=== PATIENT | female | born 1955 | race African-American/Black ===

== ENCOUNTER 2019-01-02 19:40 | Emergency (ER) | payer MEDICAID, OTHER ==
[~2019-01-02] VITALS: Ht 172.7 cm; Wt 73.0 kg
[~2019-01-02 19:40] MED LIST: ACET-787 PO; AMLO5TAB PO; OXYC10TE14 PO; ZOLP10TA1 PO
[2019-01-02 19:46] VITALS: BP 189/94
--- NOTE | 2019-01-02 20:00 | NUR ---
PT AMBULATED TO THE RESTROOM, GAVE SPECIMEN AND OUT TO LOBBY, VSS
--- NOTE | 2019-01-02 20:31 | NUR ---
AMBULATED TO BED #2
--- NOTE | 2019-01-02 20:40 | NUR ---
PT BIB SELF C/O RECTAL BLEEDING. PT STATES SHE WAS HAVING A BM X1 HOUR AGO AND THE TOILET BOWL "WAS FILLED W/ BLOOD", BLOOD WHEN WIPED. NO ACTING BLEEDING AT THIS TIME. PT STATES 5/10 LOWER ABD PAIN, DISCRIBED CONSTANT BURNING. SKIN WARM, DRY AND INTACT. PT ACTING APPRORPRIALTY, SPEAKING IN CLEAR AND COMPLETE SENTENCES. PMH: HTN, POLYP REMOVED IN 2008 Addendum: 01/02/19 at 2224 by [email or web address] PT BIB SELF C/O RECTAL BLEEDING. PT STATES SHE WAS HAVING A BM X1 HOUR AGO AND THE TOILET BOWL "WAS FILLED W/ BLOOD", BLOOD WHEN WIPED, PT STATES BLOOD WAS BRIGHT/DARK RED. NO ACTING BLEEDING AT THIS TIME. PT STATES 5/10 LOWER ABD PAIN, DISCRIBED CONSTANT BURNING. SKIN WARM, DRY AND INTACT. PT ACTING APPRORPRIALTY, SPEAKING IN CLEAR AND COMPLETE SENTENCES. PMH: HTN, POLYP REMOVED IN 2008
[2019-01-02 20:47] LABS: BASOPHILS % (AUTO) 1.1 % (0.0-2.0); EOSINOPHILS % (AUTO) 0.6 % (0.0-4.0); HEMATOCRIT 38.8 % (36-48); HEMOGLOBIN 13.1 g/dL (12.0-16.0); LYMPHOCYTES # (AUTO) 2.9 K/uL (2.5-16.5); LYMPHOCYTES % (AUTO) 67.1 % (20.5-51.1); MEAN CORPUSCULAR HEMOGLOBIN 34 pg (27-31); MEAN CORPUSCULAR HGB CONC 34 g/dL (33-37); MEAN CORPUSCULAR VOLUME 101.5 fL (80-94); MONOCYTES # (AUTO) 0.3 K/uL (0.8-1.0); MONOCYTES % (AUTO) 6.4 % (1.7-9.3); NEUTROPHILS # (AUTO) 1.1 K/uL (1.8-7.7); NEUTROPHILS % (AUTO) 24.8 % (42.2-75.2); PLATELET COUNT (AUTO) 186 K/uL (140-450); RED BLOOD CELL COUNT(AUTO) 3.82 MIL/uL (4.20-5.40); WHITE BLOOD COUNT (AUTO) 4.3 K/uL (4.8-10.8)
[2019-01-02 21:04] LABS: ALBUMIN 3.9 g/dL (3.4-5.0); CARBON DIOXIDE 30.7 mmol/L (21-32); POTASSIUM 3.7 mmol/L (3.5-5.1); TOTAL BILIRUBIN 0.5 mg/dL (0.0-1.0)
--- NOTE | 2019-01-02 22:20 | NUR ---
DR. RIGGINS BEDSIDE EVALUATING PT
--- NOTE | 2019-01-02 22:25 | NUR ---
Female racket stringer at bedside by RN for rectal exam by Dr. Reyna at this time.
[2019-01-02 22:43] VITALS: BP 189/94
--- NOTE | 2019-01-02 22:43 | NUR ---
Patient discharged with v/s stable. Written and verbal after care instructions given and explained. Patient verbalized understanding. Ambulatory with steady gait. All questions addressed prior to discharge. Advised to follow up with PMD.
== END 2019-01-02 22:43 | disposition home or self-care (01) ==
LOC: MED 19:40
DX: K64.9 Unspecified hemorrhoids (principal); K62.5 Hemorrhage of anus and rectum; I10 Essential (primary) hypertension; Z90.49 Acquired absence of other specified parts of digestive tract; Z88.0 Allergy status to penicillin; Z79.899 Other long term (current) drug therapy
CPT/HCPCS: 36415; 80053; 81002; 81025; 83690; 85025; 99284

== ENCOUNTER 2019-02-18 08:15 | Emergency (ER) | payer SELFPAY ==
[~2019-02-18] VITALS: Ht 167.6 cm; Wt 73.0 kg
[2019-02-18 08:24] VITALS: BP 166/92
--- NOTE | 2019-02-18 08:28 | NUR ---
PT AMB TO BED 8 WITH STEADY GAIT Addendum: 02/18/19 at 0832 by [email or web address] TO BED 5
--- NOTE | 2019-02-18 08:32 | NUR ---
DR. CADET AT BEDSIDE EVALUATING PATIENT.
[2019-02-18] MEDS ORDERED: hydrOXYzine HCL 25 MG TAB PO ONE (08:35)
[2019-02-18] MEDS ORDERED: DEXAMETHASONE 10 MG/ML VIAL IM ONE (08:35)
--- NOTE | 2019-02-18 08:45 | NUR ---
PT C/O BUG BITE X 2 DAYS AGO. PATIENT STATES THE NEXT DAY IT TURNED PURPLE. STATES SHE PUT RUBBING ALCOHOL ON IT. PAIN DESCRIBED BURNING 03/21. DENIES N/V/D; SKIN IS PINK/WARM/DRY; AAOX4 WITH EVEN AND STEADY GAIT; PT DENIES ANY FEVER, CP, SOB, OR COUGH AT THIS TIME; VSS; PATIENT POSITIONED FOR COMFORT; HOB ELEVATED; BEDRAILS UP X2; BED DOWN. ER MD MADE AWARE OF PT STATUS.
--- NOTE | 2019-02-18 08:46 | NUR ---
BUG BITE TO Nestor ANKLE
--- NOTE | 2019-02-18 08:48 | NUR ---
Josemanuel goldberg in ED - 02/18/19 at 0848 by [email or web address] PT REFUSED DECADRON IM INJECTION AT THIS TIME.
--- NOTE | 2019-02-18 08:49 | NUR ---
MEDS ADMINISTERED BY CESILIA CROCKETT. PT REFUSED DECADRON IM INJECTION AT THIS TIME.
[2019-02-18 09:17] VITALS: BP 162/90
--- NOTE | 2019-02-18 09:17 | NUR ---
Patient discharged with v/s stable. Written and verbal after care instructions given and explained. Patient alert, oriented and verbalized understanding of instructions. Ambulatory with steady gait. All questions addressed prior to discharge. ID band removed. Patient advised to follow up with PMD. Rx of TRIAMCINOLONE ACETONIDE TOPICAL CREAM AND ATARAX given. Patient educated on indication of medication including possible reaction and side effects. Opportunity to ask questions provided and answered. PT INSTRUCTED TO RETURN TO ED IF SYMPTOMS WORSEN.
== END 2019-02-18 09:17 | disposition home or self-care (01) ==
LOC: MED 08:15
DX: S90.562A Insect bite (nonvenomous), left ankle, initial encounter (principal); I10 Essential (primary) hypertension; G89.29 Other chronic pain; Z79.899 Other long term (current) drug therapy; W57.XXXA Bitten or stung by nonvenomous insect and other nonvenomous arthropods, initial encounter; Y93.89 Activity, other specified; Y92.89 Other specified places as the place of occurrence of the external cause; Y99.8 Other external cause status
CPT/HCPCS: 99283; J1100

== ENCOUNTER 2019-08-20 06:10 | Emergency (ER) | payer MEDICAID ==
[~2019-08-20] VITALS: Ht 172.7 cm; Wt 72.6 kg
[~2019-08-20 06:10] MED LIST changes: -ACET-787 PO; -ZOLP10TA1 PO
[2019-08-20 06:12] VITALS: BP 176/88
--- NOTE | 2019-08-20 06:18 | NUR ---
PT AMBUALTED TO BED #12
--- NOTE | 2019-08-20 06:28 | NUR ---
PT STATES SHE HAS NORMAL BM PATTERN.
--- NOTE | 2019-08-20 06:28 | NUR ---
64 Y/O FEMALE C/O URINARY BURNING X 1 WEEK. RAES PAIN 9/10 AND DESCRIBES IT SHARP BURNING CONSTANT PAIN AND IS LOCATED AT SUPRAPUBIC AREA AND RADIATES TO BILAT LOWER BACK. PT TOOK TYLENOL AND PERCOCET AT 0500 TODAY WITH NO RELIEF. PT STATES SHE HAS BURNING SENSATION WHEN PEEING BUT NO BLOOD IN URINE. NO FEVER,N,V,D. ABD IS SOFT, ROUND, TENDERNESS AROUND SUPRPUBIC AREA, ACTIVE BS. VSS. A & O X4. STEADY GAIT. UMBILICAL HERNIA PROTRUDING FROM ABD NOTED. NO SIGNS OF DISTRESS OR BLEEDING. AERLLGIES: PENCILLIN PMH: HTN, UMBILICAL HERNIA, DIVERTICULITIS, POLYP REMOVED IN COLON ( 1YR AGO).
--- NOTE | 2019-08-20 06:55 | NUR ---
TOOK URINE TO LAB.
--- NOTE | 2019-08-20 07:14 | NUR ---
Josemanuel goldberg in [facility] - 08/20/19 at 0715 by KATY Pt report given to BON ROSS. Transfer of care at this time.
--- NOTE | 2019-08-20 07:14 | NUR ---
Pt report given to BON ROSS. Transfer of care at this time.
--- NOTE | 2019-08-20 07:17 | NUR ---
Pt report given to BON ROSS. Transfer of care at this time.
[2019-08-20 07:46] VITALS: BP 176/88
--- NOTE | 2019-08-20 07:46 | NUR ---
Patient discharged by Dr. Sotomayor with v/s stable. Written and verbal after care instructions given and explained. Patient verbalized understanding. Rx of Pyridium 200mg and Macrobid Capsule 100mg was given. Ambulatory with steady gait. All questions addressed prior to discharge. Advised to follow up with PMD.
[2019-08-20 07:51] LABS: APPEARANCE,URINE SL CLOUDY (CLEAR); BILIRUBIN,URINE NEGATIVE (NEGATIVE); BLOOD, URINE NEGATIVE (NEGATIVE); COLOR,URINE YELLOW (YELLOW); LEUKOCYTE ESTERASE ,URINE NEGATIVE (NEGATIVE); NITRITE, URINE NEGATIVE (NEGATIVE); PH,URINE 7.5 (5.0-9.0); UGLUCOSE NEGATIVE (NEGATIVE)
[2019-08-20 07:59] LABS: RBC,URINE NONE SEEN /HPF (0-5); WBC,URINE 0-5 /HPF (0-5)
[2019-08-20 08:00] LABS: CALCIUM OXALATE CRYSTALS,UR 0-10 /HPF (None Seen); URINE AMORPHOUS URATE 2+ /HPF (None Seen)
== END 2019-08-20 07:46 | disposition home or self-care (01) ==
LOC: MED 06:10
DX: N39.0 Urinary tract infection, site not specified (principal); I10 Essential (primary) hypertension; Z90.49 Acquired absence of other specified parts of digestive tract; Z90.710 Acquired absence of both cervix and uterus; Z98.890 Other specified postprocedural states; Z79.899 Other long term (current) drug therapy; Z79.891 Long term (current) use of opiate analgesic; Z88.0 Allergy status to penicillin
CPT/HCPCS: 81001; 99283

== ENCOUNTER 2019-09-11 19:02 | Emergency (ER) | payer MEDICAID ==
[~2019-09-11] VITALS: Ht 172.7 cm; Wt 72.1 kg
[2019-09-11 19:24] VITALS: BP 183/93
--- NOTE | 2019-09-11 19:31 | NUR ---
PT AMBULATED TO BED #4
--- NOTE | 2019-09-11 19:35 | NUR ---
PT 64 Y/O FEMALE BIB SELF FOR PAINFUL URINATION X 2 DAYS. HAD HX OF UTI X 2 WEEKS AGO BUT STOPPED TAKING ABT. 04/21 PAIN UPON URINATING RADIATING TO LEFT AND RIGHT FLANK. AFEBRILE. DENIES COUGH, SOB. DENIES N/V/D. PT ABLE TO AMBULATE TO RESTROOM WITHOUT ASSISTANCE. UA COLLECTED. PT AAO X 4. PT RESTING IN BED EYES OPEN. RESPIRATIONS AR EVEN AND UNLABORES. SKIN IS WARM AND DRY TO TOUCH. BED LOCKED AND IN LOWEST POSITION. MEDHX: HTN ALLERGIES: HTN
--- NOTE | 2019-09-11 20:20 | NUR ---
PT AMBULATED TO RESTROOM WITHOUT ASSISTANCE.
[2019-09-11 21:00] VITALS: BP 165/82
--- NOTE | 2019-09-11 21:00 | NUR ---
Patient discharged with v/s stable. Written and verbal after care instructions given and explained. Patient alert, oriented and verbalized understanding of instructions. Ambulatory with steady gait. All questions addressed prior to discharge. ID band removed. Patient advised to follow up with PMD. Rx of BACTRIM,PYRIDIUM given. Patient educated on indication of medication including possible reaction and side effects. Opportunity to ask questions provided and answered.
== END 2019-09-11 21:00 | disposition home or self-care (01) ==
LOC: MED 19:02
DX: N39.0 Urinary tract infection, site not specified (principal); I10 Essential (primary) hypertension; Z79.899 Other long term (current) drug therapy; Z88.0 Allergy status to penicillin
CPT/HCPCS: 81002; 87086; 99283

== ENCOUNTER 2020-01-06 13:22 | Emergency (ER) | payer OTHER ==
[~2020-01-06] VITALS: Ht 172.7 cm; Wt 72.6 kg
[2020-01-06 13:26] VITALS: BP 174/100
[2020-01-06] MEDS: oxyCODONE/APAP 5/325 MG 1 TAB TAB PO ONE (13:56)
[2020-01-06 14:09] VITALS: BP 174/100
== END 2020-01-06 14:11 | disposition home or self-care (01) ==
LOC: MED 13:22
DX: M54.5 Low back pain (principal); I10 Essential (primary) hypertension; Z88.0 Allergy status to penicillin; Z79.899 Other long term (current) drug therapy; Z98.890 Other specified postprocedural states
CPT/HCPCS: 99283

== ENCOUNTER 2020-01-07 14:04 | Emergency (ER) | payer OTHER ==
[~2020-01-07] VITALS: Ht 170.2 cm; Wt 70.3 kg
--- NOTE | 2020-01-07 14:05 | NUR ---
PT AMBULATED TO CHAIR A, STEADY GAIT.
[2020-01-07 14:08] VITALS: BP 167/98
--- NOTE | 2020-01-07 14:24 | NUR ---
64 Y/F PRESENTS TO ED FOR LOW BACK PAIN.PT SEEN YESTERDAY IN ED AND REPORTS WORSENING PAIN TODAY. PT REPORTS 9/10 BURNING PAIN. PT REPORTS PAIN IS CHRONIC, HAS HAD AN MRI DONE AND HAS HX OF BULGING DISKS. PT REPORTS SHE IS DUE FOR A PERCOCET REFILL ON SATURDAY. PT DENIES URINARY FREQUENCY, HEMATURIA. LOW BACK IS NONTENDER TO PALPATION. SKIN INTACT NO EDEMA OR RASHES NOTED. PMH- HTN, BULGING DISK ALLEGIES-PENICILLIN
--- NOTE | 2020-01-07 14:39 | NUR ---
ASHISH TAPIA CHAIRSIDE.
[2020-01-07 15:10] VITALS: BP 182/92
--- NOTE | 2020-01-07 15:10 | NUR ---
Patient discharged with v/s stable. Written and verbal after care instructions given and explained. Patient alert, oriented and verbalized understanding of instructions. Ambulatory with steady gait. All questions addressed prior to discharge. ID band removed. Patient advised to follow up with PMD. Rx of [place] given. Patient educated on indication of medication including possible reaction and side effects. Opportunity to ask questions provided and answered. pt's BP is 182/92mmHg, PA, villa notified.
== END 2020-01-07 15:10 | disposition home or self-care (01) ==
LOC: MED 14:04
DX: G89.29 Other chronic pain (principal); R03.0 Elevated blood-pressure reading, without diagnosis of hypertension; Z88.0 Allergy status to penicillin; Z79.899 Other long term (current) drug therapy
CPT/HCPCS: 81002; 99283

== ENCOUNTER 2021-05-04 08:47 | Emergency (ER) | payer OTHER ==
[~2021-05-04] VITALS: Ht 172.7 cm; Wt 71.2 kg
[2021-05-04 08:57] VITALS: BP 141/76
--- NOTE | 2021-05-04 09:12 | NUR ---
PT AMBULATED TO ER BED 11.
--- NOTE | 2021-05-04 09:15 | NUR ---
DR. BEAVERS AT PT BEDSIDE FOR FURTHER EVALUATION.
--- NOTE | 2021-05-04 09:19 | NUR ---
PATIENT PRESENTS TO ED WITH UTI SYMPTOMS X1 WEEK . PT STATES SHE IS EXPEREINCING URINARY BURNING/HESITANCY/FREQUENCY . DENIES N/V/D; SKIN IS PINK/WARM/DRY; AAOX4 WITH EVEN AND STEADY GAIT; LUNGS CLEAR BL; HR EVEN AND REGULAR; PT DENIES ANY FEVER, CP, SOB, OR COUGH AT THIS TIME; PATIENT STATES PAIN OF 4/10 AT THIS TIME; VSS; PATIENT POSITIONED FOR COMFORT; HOB ELEVATED; BEDRAILS UP X2; BED DOWN. ER MD MADE AWARE OF PT STATUS.
[2021-05-04] MEDS ORDERED: SULF-59 PO (09:24)
[2021-05-04] MEDS ORDERED: PYR100 PO (09:24)
--- NOTE | 2021-05-04 10:36 | NUR ---
Patient discharged with v/s stable. Written and verbal after care instructions given and explained. Patient alert, oriented and verbalized understanding of instructions. Ambulatory with steady gait. All questions addressed prior to discharge. ID band removed. Patient advised to follow up with PMD. Rx of Bactrim and Pyridium given. Patient educated on indication of medication including possible reaction and side effects. Opportunity to ask questions provided and answered.
== END 2021-05-04 10:36 | disposition home or self-care (01) ==
LOC: MED 08:47
DX: N39.0 Urinary tract infection, site not specified (principal); R30.0 Dysuria; I10 Essential (primary) hypertension; Z79.899 Other long term (current) drug therapy; Z88.0 Allergy status to penicillin
CPT/HCPCS: 81002; 87086; 99283

== ENCOUNTER 2021-09-29 20:48 | Emergency (ER) | payer OTHER ==
[~2021-09-29] VITALS: Ht 172.7 cm; Wt 71.4 kg
[~2021-09-29 20:48] MED LIST changes: +PYR100 PO; +SULF-59 PO
[2021-09-29 21:05] VITALS: BP 171/98
--- NOTE | 2021-09-29 21:11 | NUR ---
pt sent to lobby waiting for bed.
== END 2021-09-29 21:33 | disposition left against medical advice (07) ==
LOC: MED 20:48
DX: R03.0 Elevated blood-pressure reading, without diagnosis of hypertension (principal); R10.9 Unspecified abdominal pain; R11.0 Nausea; Z53.21 Procedure and treatment not carried out due to patient leaving prior to being seen by health care provider

== ENCOUNTER 2021-10-04 14:41 | Emergency (ER) | payer OTHER ==
[~2021-10-04] VITALS: Ht 172.7 cm; Wt 70.3 kg
[2021-10-04 14:44] VITALS: BP 149/77
--- NOTE | 2021-10-04 15:18 | NUR ---
PULVERIZER TENDER AT PT BEDSIDE.
[2021-10-04 15:28] LABS: BASOPHILS % (AUTO) 0.5 % (0.0-2.0); EOSINOPHILS % (AUTO) 0.5 % (0.0-4.0); HEMATOCRIT 36.7 % (36-48); HEMOGLOBIN 12.6 g/dL (12.0-16.0); LYMPHOCYTES # (AUTO) 2.8 K/uL (2.5-16.5); LYMPHOCYTES % (AUTO) 52.5 % (20.5-51.1); MEAN CORPUSCULAR HEMOGLOBIN 34 pg (27-31); MEAN CORPUSCULAR HGB CONC 34 g/dL (33-37); MEAN CORPUSCULAR VOLUME 98.6 fL (80-94); MONOCYTES # (AUTO) 0.4 K/uL (0.8-1.0); MONOCYTES % (AUTO) 7.1 % (1.7-9.3); NEUTROPHILS # (AUTO) 2.1 K/uL (1.8-7.7); NEUTROPHILS % (AUTO) 39.4 % (42.2-75.2); PLATELET COUNT (AUTO) 201 K/uL (140-450); RED BLOOD CELL COUNT(AUTO) 3.72 MIL/uL (4.20-5.40); RED CELL DISTRIBUTION WIDTH 12.7 % (11.6-13.7); WHITE BLOOD COUNT (AUTO) 5.3 K/uL (4.8-10.8)
[2021-10-04 15:48] LABS: ALBUMIN 4.2 g/dL (3.4-5.0); ANION GAP 11.2 (8-16); CARBON DIOXIDE 30.5 mmol/L (21-32); POTASSIUM 3.7 mmol/L (3.5-5.1); TOTAL BILIRUBIN 0.4 mg/dL (0.0-1.0)
[2021-10-04 16:45] VITALS: BP 179/102
--- NOTE | 2021-10-04 16:45 | NUR ---
Patient discharged with v/s stable. Written and verbal after care instructions given FOR CONSTIPATION and explained. Patient verbalized understanding. Ambulatory with steady gait. All questions addressed prior to discharge. Advised to follow up with PMD.
== END 2021-10-04 16:45 | disposition home or self-care (01) ==
LOC: MED 14:41
DX: K59.00 Constipation, unspecified (principal); R11.10 Vomiting, unspecified; R30.9 Painful micturition, unspecified
CPT/HCPCS: 36415; 80053; 81002; 83690; 85025; 99284

== ENCOUNTER 2022-01-15 05:08 | Emergency (ER) | payer OTHER ==
[~2022-01-15] VITALS: Ht 172.7 cm; Wt 70.3 kg
[2022-01-15 05:10] VITALS: BP 175/103
[2022-01-15] MEDS ORDERED: ONDANSETRON 4 MG ODT PO ONE (05:20)
[2022-01-15] MEDS ORDERED: CLONIDINE HYDROCHLORIDE 0.1 MG TAB PO ONE (05:20)
[2022-01-15] MEDS ORDERED: ACETAMINOPHEN EXTRA STRENGTH 500 MG TAB PO ONE (05:20)
[2022-01-15 06:29] LABS: BASOPHILS % (AUTO) 0.5 % (0.0-2.0); HEMATOCRIT 38.7 % (36-48); HEMOGLOBIN 13.3 g/dL (12.0-16.0); LYMPHOCYTES # (AUTO) 0.4 K/uL (2.5-16.5); LYMPHOCYTES % (AUTO) 7.8 % (20.5-51.1); MEAN CORPUSCULAR HEMOGLOBIN 34 pg (27-31); MEAN CORPUSCULAR HGB CONC 34 g/dL (33-37); MEAN CORPUSCULAR VOLUME 99.1 fL (80-94); MONOCYTES # (AUTO) 0.4 K/uL (0.8-1.0); MONOCYTES % (AUTO) 9.2 % (1.7-9.3); NEUTROPHILS % (AUTO) 82.5 % (42.2-75.2); PLATELET COUNT (AUTO) 166 K/uL (140-450); RED BLOOD CELL COUNT(AUTO) 3.91 MIL/uL (4.20-5.40); RED CELL DISTRIBUTION WIDTH 13.2 % (11.6-13.7); WHITE BLOOD COUNT (AUTO) 4.8 K/uL (4.8-10.8)
[2022-01-15 07:10] LABS: ANION GAP 13.5 (8-16); ASPARTATE AMINOTRANSFERASE 14 U/L (15-37); CHLORIDE 99 mmol/L (98-107); CREATININE 0.8 mg/dL (0.6-1.3); GFR ARICAN-AMERICAN 92 mL/min (>90); GLUCOSE 149 mg/dL (74-106); POTASSIUM 3.5 mmol/L (3.5-5.1); SODIUM SERUM 134 mmol/L (136-145); TOTAL BILIRUBIN 0.4 mg/dL (0.0-1.0); UREA NITROGEN, BLOOD 7 mg/dL (7-18)
[2022-01-15 08:25] VITALS: BP 120/63
== END 2022-01-15 08:20 | disposition home or self-care (01) ==
LOC: MED 05:08
DX: I16.0 Hypertensive urgency (principal); I10 Essential (primary) hypertension; Z79.899 Other long term (current) drug therapy; Z79.2 Long term (current) use of antibiotics; Z79.891 Long term (current) use of opiate analgesic; Z88.0 Allergy status to penicillin
CPT/HCPCS: 36415; 80053; 84484; 85025; 93005; 99284; Q0162

== ENCOUNTER 2022-10-27 08:28 | Emergency (ER) | payer OTHER, MEDICAID ==
[~2022-10-27] VITALS: Ht 172.7 cm; Wt 69.0 kg
[2022-10-27 08:29] VITALS: BP 161/77
--- NOTE | 2022-10-27 08:35 | NUR ---
PT AMB TO BED 4.
[2022-10-27 10:03] LABS: APPEARANCE,URINE CLEAR (CLEAR); BILIRUBIN,URINE NEGATIVE (NEGATIVE); BLOOD, URINE TRACE-I (NEGATIVE); COLOR,URINE YELLOW (YELLOW); LEUKOCYTE ESTERASE ,URINE 2+ (NEGATIVE); NITRITE, URINE POSITIVE (NEGATIVE); UGLUCOSE NEGATIVE (NEGATIVE)
[2022-10-27] MEDS ORDERED: SULF-59 PO (10:34)
[2022-10-29] MEDS ORDERED: NITR100C7 PO (14:13)
--- NOTE | 2022-10-29 14:17 | NUR ---
LATE ENTRY. RECEIVED POSITIVE URINE CULTURE. FORM GIVEN TO DR JAMES. DR JAMES ATTEMPTED TO CALL PT, NO ANSWER, LEFT MESSAGE. NEW RX OF MACROBID SENT TO PTS PHARM[facility]Y. FORM PLACED IN BINDER.
== END 2022-10-27 10:46 | disposition home or self-care (01) ==
LOC: MED 08:28
DX: N39.0 Urinary tract infection, site not specified (principal); R30.0 Dysuria; I10 Essential (primary) hypertension; Z88.0 Allergy status to penicillin; Z79.899 Other long term (current) drug therapy
CPT/HCPCS: 81001; 87086; 99283

== ENCOUNTER 2022-11-26 08:53 | Emergency (ER) | payer OTHER, MEDICAID ==
[~2022-11-26] VITALS: Ht 172.7 cm; Wt 68.9 kg
[~2022-11-26 08:53] MED LIST changes: +NITR100C7 PO
[2022-11-26 08:58] VITALS: BP 181/100
--- NOTE | 2022-11-26 09:06 | NUR ---
PT AMBULATED TO BED 7
--- NOTE | 2022-11-26 09:10 | NUR ---
67YO FEMALE PT C/O PELVIC PAIN AND DYSURIA X3DAYS. REPORTS S/S 1 MONTH AGO DX UTI W/O RELIEF AFTER ANTIBIOTICS GIVEN. DENIES BACK PAIN, N/V/D, FEVER OR CHILLS. PT AAOX4. HOB POSITIONED PER COMFORT HX: ARTHRITIS ALLERGIES:PENICILLINS
--- NOTE | 2022-11-26 09:13 | NUR ---
MD HAMPTON AT BEDSIDE FOR EVALUATION
[2022-11-26] MEDS ORDERED: CIPR500T9 PO (09:20)
[2022-11-26 09:32] LABS: APPEARANCE,URINE CLEAR (CLEAR); BILIRUBIN,URINE NEGATIVE (NEGATIVE); BLOOD, URINE NEGATIVE (NEGATIVE); COLOR,URINE YELLOW (YELLOW); LEUKOCYTE ESTERASE ,URINE NEGATIVE (NEGATIVE); NITRITE, URINE NEGATIVE (NEGATIVE); UGLUCOSE NEGATIVE (NEGATIVE)
--- NOTE | 2022-11-26 09:45 | NUR ---
Patient discharged with v/s stable. Written and verbal after care instructions FOR UTI given and explained. Patient alert, oriented and verbalized understanding of instructions. Ambulatory with steady gait. All questions addressed prior to discharge. ID band removed. Patient advised to follow up with PMD. Rx of CIPROFLOXACIN HCL given. Opportunity to ask questions provided and answered.
--- NOTE | 2022-11-26 09:46 | NUR ---
The patient's care was reviewed and supervised by Audelia Virgen, RN, RN.
== END 2022-11-26 09:45 | disposition home or self-care (01) ==
LOC: MED 08:53
DX: N39.0 Urinary tract infection, site not specified (principal); I10 Essential (primary) hypertension; Z88.0 Allergy status to penicillin; Z79.899 Other long term (current) drug therapy
CPT/HCPCS: 81003; 87086; 99283

== ENCOUNTER 2023-06-02 13:43 | Emergency (ER) | payer OTHER, MEDICAID ==
[~2023-06-02] VITALS: Ht 172.7 cm; Wt 66.7 kg
[~2023-06-02 13:43] MED LIST changes: +CIPR500T9 PO
[2023-06-02 13:53] VITALS: BP 169/80; PULSE 61; RESP 20; TEMP 98.1; O2SAT 97
[2023-06-02 15:15] VITALS: BP 159/79; PULSE 59; RESP 20; TEMP 97.9; O2SAT 97
== END 2023-06-02 15:15 | disposition home or self-care (01) ==
LOC: MED 13:43
DX: M79.89 Other specified soft tissue disorders (principal); I10 Essential (primary) hypertension; Z88.0 Allergy status to penicillin; Z79.899 Other long term (current) drug therapy
CPT/HCPCS: 93971; 99284; Q0092

== ENCOUNTER 2023-11-13 12:29 | Emergency (ER) | payer OTHER, MEDICAID ==
[~2023-11-13] VITALS: Ht 172.7 cm; Wt 68.9 kg
[2023-11-13 12:43] VITALS: BP 156/80; PULSE 69; TEMP 98.1; O2SAT 98
[2023-11-13 14:11] VITALS: O2SAT 98
[2023-11-13] MEDS: oxyCODONE/APAP 5/325 MG 1 TAB TAB PO ONE (14:28)
[2023-11-13] MEDS ORDERED: LID5T TP (15:11)
[2023-11-13] MEDS ORDERED: NAPR-54 PO (15:11)
[2023-11-13] MEDS ORDERED: ACET-5636 PO (15:11)
== END 2023-11-13 15:20 | disposition home or self-care (01) ==
LOC: MED 12:29
DX: S62.605A Fracture of unspecified phalanx of left ring finger, initial encounter for closed fracture (principal); S70.01XA Contusion of right hip, initial encounter; S20.211A Contusion of right front wall of thorax, initial encounter; I10 Essential (primary) hypertension; Z88.0 Allergy status to penicillin; Z79.899 Other long term (current) drug therapy; W18.30XA Fall on same level, unspecified, initial encounter; Y93.89 Activity, other specified; Y92.89 Other specified places as the place of occurrence of the external cause; Y99.8 Other external cause status
CPT/HCPCS: 71101; 73140; 73502; 99284

== ENCOUNTER 2023-12-07 17:35 | Emergency (ER) | payer OTHER, MEDICAID ==
[~2023-12-07] VITALS: Ht 172.7 cm; Wt 68.0 kg
[~2023-12-07 17:35] MED LIST changes: +ACET-5636 PO; +LID5T TP; +NAPR-337 PO
[2023-12-07 17:46] VITALS: BP 160/90; PULSE 63; RESP 16; TEMP 98.5; O2SAT 98
[2023-12-07 18:37] LABS: BASOPHILS % (AUTO) 0.4 % (0.0-2.0); EOSINOPHILS % (AUTO) 0.8 % (0.0-4.0); HEMATOCRIT 32.7 % (36-48); HEMOGLOBIN 11.3 g/dL (12.0-16.0); LYMPHOCYTES % (AUTO) 40.4 % (20.5-51.1); MEAN CORPUSCULAR HEMOGLOBIN 35 pg (27-31); MEAN CORPUSCULAR HGB CONC 35 g/dL (33-37); MEAN CORPUSCULAR VOLUME 100.3 fL (80-94); MONOCYTES # (AUTO) 0.3 K/uL (0.8-1.0); MONOCYTES % (AUTO) 6.5 % (1.7-9.3); NEUTROPHILS # (AUTO) 2.6 K/uL (1.8-7.7); NEUTROPHILS % (AUTO) 51.9 % (42.2-75.2); PLATELET COUNT (AUTO) 225 K/uL (140-450); RED BLOOD CELL COUNT(AUTO) 3.26 MIL/uL (4.20-5.40); RED CELL DISTRIBUTION WIDTH 13.3 % (11.6-13.7); WHITE BLOOD COUNT (AUTO) 4.9 K/uL (4.8-10.8)
[2023-12-07 18:45] LABS: ANION GAP 12.5 (8-16); CALCIUM 9.6 mg/dL (8.5-10.1); CARBON DIOXIDE 29.3 mmol/L (21-32); CREATININE 0.8 mg/dL (0.6-1.3); POTASSIUM 3.8 mmol/L (3.5-5.1)
[2023-12-07 18:54] LABS: ALANINE AMINOTRANSFERASE 19 U/L (12-78); ALBUMIN 4.1 g/dL (3.4-5.0); ALKALINE PHOSPHATASE 104 U/L (50-136); ASPARTATE AMINOTRANSFERASE 9 U/L (15-37); BILIRUBIN,DIRECT 0.1 mg/dL (0.0-0.3); TOTAL BILIRUBIN 0.3 mg/dL (0.0-1.0); TOTAL PROTEIN, SERUM 7.7 g/dL (6.4-8.2)
[2023-12-07 18:59] LABS: INR 0.94 (0.8-1.2); PARTIAL THROMBOPLASTIN TIME 25.8 secs (22-35.6); PROTHROMBIN TIME 9.9 secs (10.8-13.4)
[2023-12-07] MEDS: oxyCODONE/APAP 5/325 MG 1 TAB TAB PO ONE ×2 (19:04→21:54)
[2023-12-07] MEDS: amLODIPine 5 MG TAB PO ONE (19:04)
[2023-12-07] MEDS: MORPHINE SULFATE 4 MG/ML SYR IVP ONE (19:05)
[2023-12-07 22:16] VITALS: BP 152/79; PULSE 74; RESP 16; TEMP 98.1; O2SAT 99
[2023-12-08] MEDS ORDERED: ASPIRIN 325 MG TABEC PO SCH (09:00)
== END 2023-12-07 22:16 | disposition home or self-care (01) ==
LOC: MED 17:35
DX: R07.9 Chest pain, unspecified (principal); I10 Essential (primary) hypertension; Z79.899 Other long term (current) drug therapy; Z88.0 Allergy status to penicillin
CPT/HCPCS: 36415; 71045; 80048; 80076; 83880; 84484; 85025; 85379; 85610; 85730; 93005; 99285

== ENCOUNTER 2023-12-14 13:45 | Emergency (ER) | payer OTHER, MEDICAID ==
[~2023-12-14] VITALS: Ht 172.7 cm; Wt 68.1 kg
[2023-12-14 13:55] VITALS: BP 168/84; PULSE 76; RESP 13; TEMP 98.1; O2SAT 99
[2023-12-14] MEDS: NITROGLYCERIN 0.4 MG TAB SL ONE (14:44)
[2023-12-14 14:46] LABS: BASOPHILS % (AUTO) 0.5 % (0.0-2.0); EOSINOPHILS # (AUTO) 0.1 K/uL (0-0.4); EOSINOPHILS % (AUTO) 1.1 % (0.0-4.0); HEMOGLOBIN 11.4 g/dL (12.0-16.0); LYMPHOCYTES # (AUTO) 2.5 K/uL (2.5-16.5); LYMPHOCYTES % (AUTO) 53.9 % (20.5-51.1); MEAN CORPUSCULAR HEMOGLOBIN 35 pg (27-31); MEAN CORPUSCULAR HGB CONC 34 g/dL (33-37); MEAN CORPUSCULAR VOLUME 100.9 fL (80-94); MONOCYTES # (AUTO) 0.3 K/uL (0.8-1.0); MONOCYTES % (AUTO) 6.7 % (1.7-9.3); NEUTROPHILS # (AUTO) 1.7 K/uL (1.8-7.7); NEUTROPHILS % (AUTO) 37.8 % (42.2-75.2); PLATELET COUNT (AUTO) 226 K/uL (140-450); RED BLOOD CELL COUNT(AUTO) 3.27 MIL/uL (4.20-5.40); RED CELL DISTRIBUTION WIDTH 13.4 % (11.6-13.7); WHITE BLOOD COUNT (AUTO) 4.6 K/uL (4.8-10.8)
[2023-12-14 14:58] LABS: ANION GAP 8.3 (8-16); CARBON DIOXIDE 31.6 mmol/L (21-32); POTASSIUM 3.9 mmol/L (3.5-5.1)
[2023-12-14 15:00] LABS: INR 0.93 (0.8-1.2); PARTIAL THROMBOPLASTIN TIME 25.4 secs (22-35.6); PROTHROMBIN TIME 9.8 secs (10.8-13.4)
[2023-12-14 15:05] LABS: ALANINE AMINOTRANSFERASE 17 U/L (12-78); ALBUMIN 4.3 g/dL (3.4-5.0); ALKALINE PHOSPHATASE 95 U/L (50-136); ASPARTATE AMINOTRANSFERASE 14 U/L (15-37); BILIRUBIN,DIRECT 0.1 mg/dL (0.0-0.3); LIPASE 47 U/L (16-77); TOTAL BILIRUBIN 0.4 mg/dL (0.0-1.0); TOTAL PROTEIN, SERUM 7.7 g/dL (6.4-8.2)
[2023-12-14] MEDS: ALUMINUM HYD/MAG/SIMETHICONE 30 ML UDC PO ONE (15:58)
[2023-12-14 17:45] VITALS: TEMP 98.7
[2023-12-14 20:00] VITALS: BP 155/80; PULSE 64; RESP 15; O2SAT 99
== END 2023-12-14 20:10 | disposition home or self-care (01) ==
LOC: MED 13:45
DX: R07.9 Chest pain, unspecified (principal); K21.9 Gastro-esophageal reflux disease without esophagitis; I10 Essential (primary) hypertension; Z88.0 Allergy status to penicillin; Z79.899 Other long term (current) drug therapy
CPT/HCPCS: 36415; 71045; 80048; 80076; 83690; 83880; 84484; 85025; 85610; 85730; 93005; 99285

== ENCOUNTER 2024-01-04 13:00 | Emergency (ER) | payer OTHER, MEDICAID ==
[~2024-01-04] VITALS: Ht 172.7 cm; Wt 66.7 kg
[2024-01-04 13:03] VITALS: BP 172/91; PULSE 77; RESP 18; TEMP 98.2; O2SAT 99
[2024-01-04] MEDS: DICYCLOMINE HCL LIQUID 10 MG/5 ML UDC ONE (14:22)
[2024-01-04] MEDS: ALUMINUM HYD/MAG/SIMETHICONE 30 ML UDC ONE (14:22)
[2024-01-04 14:24] LABS: BASOPHILS % (AUTO) 0.6 % (0.0-2.0); EOSINOPHILS # (AUTO) 0.1 K/uL (0-0.4); EOSINOPHILS % (AUTO) 1.3 % (0.0-4.0); HEMATOCRIT 31.1 % (36-48); HEMOGLOBIN 10.7 g/dL (12.0-16.0); LYMPHOCYTES # (AUTO) 2.4 K/uL (2.5-16.5); LYMPHOCYTES % (AUTO) 51.4 % (20.5-51.1); MEAN CORPUSCULAR HEMOGLOBIN 34 pg (27-31); MEAN CORPUSCULAR HGB CONC 34 g/dL (33-37); MEAN CORPUSCULAR VOLUME 100.1 fL (80-94); MONOCYTES # (AUTO) 0.3 K/uL (0.8-1.0); MONOCYTES % (AUTO) 6.7 % (1.7-9.3); NEUTROPHILS # (AUTO) 1.9 K/uL (1.8-7.7); PLATELET COUNT (AUTO) 264 K/uL (140-450); RED CELL DISTRIBUTION WIDTH 12.7 % (11.6-13.7); WHITE BLOOD COUNT (AUTO) 4.7 K/uL (4.8-10.8)
[2024-01-04] MEDS: DICYCLOMINE HCL LIQUID 20 MG, ALUMINUM HYD/MAG/SIMETHICONE 30 ML, LIDOCAINE VISCOUS 2% ... PO ONE (14:32)
[2024-01-04] MEDS: HYDROcodone/APAP 10/325 MG 1 TAB TAB PO STA (14:34)
[2024-01-04 14:37] LABS: ANION GAP 11.4 (8-16); CALCIUM 10.1 mg/dL (8.5-10.1); CARBON DIOXIDE 27.5 mmol/L (21-32); CREATININE 1.1 mg/dL (0.6-1.3); POTASSIUM 3.9 mmol/L (3.5-5.1)
[2024-01-04] MEDS: ACETAMINOPHEN EXTRA STRENGTH 500 MG TAB PO ONE (14:40)
[2024-01-04] MEDS: oxyCODONE 5 MG TAB PO STA (14:56)
[2024-01-04 15:58] LABS: ALANINE AMINOTRANSFERASE 15 U/L (12-78); ALBUMIN 3.8 g/dL (3.4-5.0); ALKALINE PHOSPHATASE 82 U/L (50-136); ASPARTATE AMINOTRANSFERASE 13 U/L (15-37); BILIRUBIN,DIRECT 0.1 mg/dL (0.0-0.3); TOTAL BILIRUBIN 0.3 mg/dL (0.0-1.0); TOTAL PROTEIN, SERUM 7.2 g/dL (6.4-8.2)
[2024-01-04 17:04] VITALS: BP 147/79; PULSE 82; RESP 18; TEMP 98.2; O2SAT 99
== END 2024-01-04 17:05 | disposition home or self-care (01) ==
LOC: MED 13:00
DX: K21.9 Gastro-esophageal reflux disease without esophagitis (principal); F11.20 Opioid dependence, uncomplicated; R10.13 Epigastric pain; I10 Essential (primary) hypertension; Z88.0 Allergy status to penicillin; Z79.899 Other long term (current) drug therapy
CPT/HCPCS: 36415; 71045; 80048; 80076; 83690; 84484; 85025; 93005; 99285; Q0092